=== PATIENT | male | born 1970 | race Two or more races ===

== ENCOUNTER 2017-01-12 11:09 | Emergency (ER) | payer MEDICAID ==
[~2017-01-12] VITALS: Ht 152.4 cm; Wt 64.4 kg
[2017-01-12 11:13] VITALS: BP 122/78
[2017-01-12] MEDS ORDERED: HYDROCODONE/APAP 5/325MG 1 EACH TABLET ONE (11:52)
[2017-01-12] MEDS ORDERED: HYDROCODONE/APAP 5/325MG 1 EACH TABLET PO ONE (12:00)
== END 2017-01-12 13:06 | disposition home or self-care (01) ==
LOC: ER 11:12
DX: M25.522 Pain in left elbow (principal)
CPT/HCPCS: 73080; 99284; A4606; Z7610

== ENCOUNTER 2023-03-18 08:22 | Emergency (ER) | payer MEDICAID, OTHER ==
[~2023-03-18] VITALS: Ht 152.4 cm; Wt 69.4 kg
--- NOTE | 2023-03-18 08:45 | NUR ---
C/O LEFT THIGH/GROIN PAIN S/P "OVERSTRETCH WHILE PLAYING SOCCER LAST NIGHT"
[2023-03-18 08:46] VITALS: BP 127/85
[2023-03-18] MEDS ORDERED: IBUP-1955 PO (10:44)
--- NOTE | 2023-03-18 10:55 | NUR ---
Patient discharged to home in stable condition. Written and verbal after care instructions given. Patient verbalizes understanding of instruction.
== END 2023-03-18 10:57 | disposition home or self-care (01) ==
LOC: ER 08:42
DX: S76.012A Strain of muscle, fascia and tendon of left hip, initial encounter (principal); X50.9XXA Other and unspecified overexertion or strenuous movements or postures, initial encounter; Y93.66 Activity, soccer; Y92.89 Other specified places as the place of occurrence of the external cause; Y99.8 Other external cause status
CPT/HCPCS: 73502